=== PATIENT | female | born 1970 | race Hispanic/Latino ===

== ENCOUNTER 2021-03-03 14:08 | Outpatient (CLI) | payer BC | END 2021-03-03 14:09 | disposition home or self-care (01) | LOC: CSHMAMMO 14:08 | PROVIDERS: ATTEND Obstetrics & Gynecology | DX: Z12.31 Encounter for screening mammogram for malignant neoplasm of breast (principal) | CPT/HCPCS: 77063; 77067 ==

== ENCOUNTER 2021-04-05 10:46 | Outpatient (CLI) | payer BC ==
[2021-04-05 12:33] LABS: Bilirubin Neg (Negative); Blood, Urine Negative (Negative); Clarity Clear (Clear); Glucose, Urine (Dipstick) Normal (Negative); Ketone, Urine Negative (Negative); Leukocyte 25 (Negative); Nitrite Negative (Negative); Protein, Urine (Dipstick) Negative (Neg-Trace); Urobilinogen Normal mg/dL (Less than 2); pH, Urine 6.5 (5.0-9.0)
[2021-04-05 12:42] LABS: Hemoglobin 13.3 g/dL (12.0-15.5); Mean Corpuscular HGB CONC 33.7 g/dL (32.0-36.0); Mean Corpuscular Hemoglobin 27.8 pg (27.0-33.0); Mean Corpuscular Volume 82.6 fl (81.6-98.3); Mean Platelet Volume 9.1 fl (7.4-10.4); Platelet Count 343 10x3/uL (150-450); Red Blood Cell (RBC) Count 4.78 10x6/uL (3.90-5.03); White Blood Cell (WBC) Count 4.7 10x3/uL (3.5-10.5)
[2021-04-05 12:49] LABS: RBC/HPF None Seen HPF (0-3); WBC/HPF 0-3 HPF (0-3)
[2021-04-05 12:50] LABS: Bacteria/HPF Rare-Few HPF (None Seen); Squamous Epithelial 21-50 HPF (0-3)
[2021-04-05 12:53] LABS: BHCG - Serum Negative (NEGATIVE); Pregs Control Background? CLEAR/WHITE (CLR/WHITE); Pregs Control Bar Appear? YES (CONTROL BAR)
[2021-04-05 21:46] LABS: SARS-CoV-2 PCR by NAA Not Detected (NotDetected)
== END 2021-04-05 10:47 | disposition home or self-care (01) ==
LOC: CSHLAB 10:46
PROVIDERS: ATTEND Obstetrics & Gynecology
DX: Z01.812 Encounter for preprocedural laboratory examination (principal); Z20.822 Contact with and (suspected) exposure to COVID-19
CPT/HCPCS: 81001; 84703; 85027; 87635; U0003; U0005

== ENCOUNTER 2021-04-09 07:34 | Day surgery (SDC) | payer BC ==
[2021-04-08 10:19] VITALS: BMI 33.1
[~2021-04-09 07:34] MED LIST: Bupivacaine PF 0.5% 30 ML VIAL ONE; EPINEPHrine 1 MG/ML AMP ONE; Lidocaine 1% MPF 2 ML VIAL ONE
[2021-04-09] MEDS ORDERED: Lidocaine 2% Jelly 5 ML TUBE ONE (09:26)
[2021-04-09] MEDS ORDERED: PROPOFOL 20 ML ONE (09:28)
[2021-04-09] MEDS ORDERED: Fentanyl 100 MCG/2 ML VIAL ONE ×2 (09:28→13:20)
[2021-04-09] MEDS ORDERED: Lidocaine 1% PF 5 ML VIAL ONE (09:29)
[2021-04-09] MEDS ORDERED: Rocuronium Bromide 10 MG/ML (10ML VIAL) ONE (09:29)
[2021-04-09] MEDS ORDERED: Midazolam HCl 2 mg/2 ml Vial ONE (09:34)
[2021-04-09] MEDS ORDERED: Dexamethasone 20 MG/5 ML VIAL ONE (10:09)
[2021-04-09] MEDS ORDERED: Glycopyrrolate 0.2 MG/ML 5 ML SYRINGE ONE (10:16)
[2021-04-09] MEDS ORDERED: ePHEDrine 50 MG/ML VIAL ONE (10:31)
[2021-04-09] MEDS ORDERED: Ondansetron PF 4 MG/2 ML Vial ONE (11:55)
[2021-04-09] MEDS ORDERED: Ketorolac Tromethamine 15 MG/ML VIAL ONE ×2 (11:56)
[2021-04-09] MEDS ORDERED: HYDROcodone/Acetaminophen 10/325 mg Tablet PO PRN (15:08)
[2021-04-09] MEDS ORDERED: Morphine 2 MG/ML VIAL SLOW IVP PRN (15:08)
[2021-04-09] MEDS ORDERED: Acetaminophen 500 MG TAB PO PRN (15:27)
[2021-04-09 16:19] LABS: Hemoglobin 13.3 g/dL (12.0-15.5); Mean Corpuscular HGB CONC 34.5 g/dL (32.0-36.0); Mean Corpuscular Hemoglobin 28.8 pg (27.0-33.0); Mean Corpuscular Volume 83.5 fl (81.6-98.3); Mean Platelet Volume 8.6 fl (7.4-10.4); Platelet Count 300 10x3/uL (150-450); RBC Distribution Width 17.2 % (11.5-14.5); Red Blood Cell (RBC) Count 4.62 10x6/uL (3.90-5.03); White Blood Cell (WBC) Count 13.3 10x3/uL (3.5-10.5)
[2021-04-09] MEDS: HYDROcodone/Acetaminophen 10/325 mg Tablet PO PRN ×2 (16:37→21:14)
[2021-04-09] MEDS: Ondansetron PF 4 MG/2 ML Vial IVP PRN (16:38)
[2021-04-09] MEDS: Lactated Ringer's 1,000 ML IV SCH ×2 (17:00→19:32)
[2021-04-09] MEDS: Ketorolac Tromethamine 30 MG/ML VIAL IVP SCH (17:55)
[2021-04-10] MEDS: Ketorolac Tromethamine 30 MG/ML VIAL IVP SCH ×2 (00:21→06:27)
[2021-04-10] MEDS: Lactated Ringer's 1,000 ML IV SCH (03:45)
[2021-04-10] MEDS: HYDROcodone/Acetaminophen 10/325 mg Tablet PO PRN (04:11)
[2021-04-10] MEDS: Ondansetron PF 4 MG/2 ML Vial IVP PRN (06:37)
[2021-04-10 09:47] VITALS: BP 129/72; TEMP 98.3
== END 2021-04-10 13:25 | disposition home or self-care (01) ==
LOC: CSHSDC 07:34 → UNDOADMIN 15:19 → CSHPP 15:19 → UNDODISIN 04-10 13:25 → CSHSDC 04-10 13:25
PROVIDERS: ATTEND Obstetrics & Gynecology
PROC: 0UT94ZZ Resection of Uterus, Percutaneous Endoscopic Approach (ICD-10-PCS; principal; 2021-04-09)
PROC: 0UN74ZZ Release Bilateral Fallopian Tubes, Percutaneous Endoscopic Approach (ICD-10-PCS; principal; 2021-04-09)
PROC: 0UT74ZZ Resection of Bilateral Fallopian Tubes, Percutaneous Endoscopic Approach (ICD-10-PCS; principal; 2021-04-09)
DX: D25.9 Leiomyoma of uterus, unspecified (principal); N80.0 Endometriosis of uterus; N73.6 Female pelvic peritoneal adhesions (postinfective); N87.9 Dysplasia of cervix uteri, unspecified; N72 Inflammatory disease of cervix uteri
CPT/HCPCS: 85027; 88307; J0171; J0690; J1100; J1885; J2250; J2270; J2405; J2704; J3010; J3490; S0020

== ENCOUNTER 2022-03-16 09:23 | Outpatient (CLI) | payer BC | END 2022-03-16 09:24 | disposition home or self-care (01) | LOC: CSHMAMMO 09:23 | PROVIDERS: ATTEND Obstetrics & Gynecology | DX: Z12.31 Encounter for screening mammogram for malignant neoplasm of breast (principal) | CPT/HCPCS: 77063; 77067 ==

== ENCOUNTER 2022-05-10 10:54 | Outpatient (CLI) | payer BC | END 2022-05-10 10:55 | disposition home or self-care (01) | LOC: CSHMAMMO 10:54 | PROVIDERS: ATTEND Obstetrics & Gynecology | DX: Z13.820 Encounter for screening for osteoporosis (principal); M85.80 Other specified disorders of bone density and structure, unspecified site; M81.0 Age-related osteoporosis without current pathological fracture; Z79.890 Hormone replacement therapy | CPT/HCPCS: 77080 ==

== ENCOUNTER 2024-04-18 15:21 | Outpatient (CLI) | payer BC | END 2024-04-18 15:22 | disposition home or self-care (01) | LOC: CSHMAMMO 15:21 | PROVIDERS: ATTEND Obstetrics & Gynecology | DX: Z12.31 Encounter for screening mammogram for malignant neoplasm of breast (principal) | CPT/HCPCS: 77063; 77067 ==

== ENCOUNTER 2025-08-01 11:46 | Outpatient (CLI) | payer BC ==
[~2025-08-01 11:46] MED LIST changes: -Bupivacaine PF 0.5% 30 ML VIAL ONE; -EPINEPHrine 1 MG/ML AMP ONE; +Iopamidol 300 61% 100 ML VIAL FS ONE; -Lidocaine 1% MPF 2 ML VIAL ONE
== END 2025-08-01 11:47 | disposition home or self-care (01) ==
LOC: CSHCT 11:46
PROVIDERS: ATTEND Nurse Practitioner Family
DX: N23 Unspecified renal colic (principal); K21.9 Gastro-esophageal reflux disease without esophagitis; R30.0 Dysuria; R14.0 Abdominal distension (gaseous); R10.12 Left upper quadrant pain; K44.9 Diaphragmatic hernia without obstruction or gangrene
CPT/HCPCS: 74178; Q9967